=== PATIENT | female | born 1955 | race Caucasian/White ===

== ENCOUNTER 2017-03-25 14:56 | Day surgery (SDC) | payer SELFPAY ==
[~2017-03-25] VITALS: Ht 167.6 cm; Wt 63.0 kg
[2017-03-25] MEDS ORDERED: MORPHINE SULFATE 4 MG/ML, 1ML ONE (15:27)
[2017-03-25] MEDS ORDERED: ONDANSETRON 2MG/ML, 2ML ONE ×2 (15:28→18:12)
[2017-03-25] MEDS ORDERED: SODIUM CHLORIDE FLUSH 10ML SYR IVF ONE (15:30)
[2017-03-25] MEDS ORDERED: MORPHINE SULFATE 4 MG/ML, 1ML IVPush PRN (15:30)
[2017-03-25] MEDS ORDERED: ONDANSETRON 2MG/ML, 2ML IVPush ONE (15:30)
[2017-03-25] MEDS ORDERED: SODIUM CHLORIDE 0.9% 1,000ML IVBOLUS ONE (15:30)
[2017-03-25 15:39] LABS: BLOOD UREA NITROGEN 12 mg/dL (7-18)
[2017-03-25 16:07] VITALS: BP 110/62
[2017-03-25] MEDS ORDERED: FENTANYL PF 250 MCG/5ML ONE (17:40)
[2017-03-25] MEDS ORDERED: MIDAZOLAM 1 MG/ML, 2ML ONE (17:40)
[2017-03-25] MEDS ORDERED: BUPIVACAINE/PF-EPI 0.5% 1:200K ONE (17:53)
[2017-03-25] MEDS ORDERED: SUCCINYLCHOLINE 20 MG/ML, 10ML ONE (18:12)
[2017-03-25] MEDS ORDERED: CEFAZOLIN 1,000 MG ONE (18:12)
[2017-03-25] MEDS ORDERED: DEXAMETHASONE 4 MG/ML, 1ML ONE (18:12)
[2017-03-25] MEDS ORDERED: KETOROLAC 30 MG/1 ML ONE (18:12)
[2017-03-25] MEDS ORDERED: PROPOFOL 10 MG/ML, 20ML ONE (18:12)
[2017-03-25] MEDS ORDERED: MIDAZOLAM 1 MG/ML, 2ML IV PRN (18:30)
[2017-03-25] MEDS ORDERED: ACETAMINOPHEN 325 MG TABLET PO PRN (18:30)
[2017-03-25] MEDS ORDERED: MEPERIDINE/PF 25MG/0.5ML IVPush PRN (18:30)
[2017-03-25] MEDS ORDERED: FENTANYL PF 100 MCG/2ML IV PRN (18:30)
[2017-03-25] MEDS ORDERED: HYDROmorphone 1 MG/ML, 1ML IV PRN (18:30)
[2017-03-25] MEDS ORDERED: ALBUTEROL/IPRATROPIUM 2.5MG/0.5MG, 3 ML NPPB PRN (18:30)
[2017-03-25] MEDS ORDERED: LABETALOL 5MG/ML, 20ML IV PRN (18:30)
[2017-03-25] MEDS ORDERED: ONDANSETRON 2MG/ML, 2ML IVPush PRN ×2 (18:30→19:00)
[2017-03-25] MEDS ORDERED: PROMETHAZINE 25 MG/ML, 1ML IV PRN (18:30)
[2017-03-25] MEDS ORDERED: OXYcodone 5 MG/5 ML ORAL.SOL UDC PO PRN (18:30)
[2017-03-25] MEDS ORDERED: LACTATED RINGERS 1,000 ML IV SCH (18:57)
[2017-03-25] MEDS ORDERED: HYDROcodone/APAP 5/325 TABLET PO PRN (19:00)
[2017-03-25] MEDS ORDERED: ACETAMINOPHEN 650 MG/20.3 ML UDC ONE (19:15)
[2017-03-25] MEDS ORDERED: MEPERIDINE/PF 25MG/0.5ML ONE (19:15)
[2017-03-25] MEDS ORDERED: ACETAMINOPHEN 325 MG/10.15 ML UDC ONE (19:15)
[2017-03-25] MEDS ORDERED: HYDR-883 PO (20:51)
== END 2017-03-25 21:20 | disposition home or self-care (01) ==
LOC: ED 16:47 → EDIP 17:54 → UNDOADMIN 17:54 → OR 18:57 → EDIP 19:58 → 4NOR 19:58 → UNDODISIN 21:20 → OR 21:20
PROVIDERS: ATTEND Thoracic Surgery (Cardiothoracic Vascular Surgery)
DX: K40.90 Unilateral inguinal hernia, without obstruction or gangrene, not specified as recurrent (principal); Z87.891 Personal history of nicotine dependence; I25.10 Atherosclerotic heart disease of native coronary artery without angina pectoris
CPT/HCPCS: 36415; 49505; 51701; 71010; 76857; 80048; 81003; 82040; 85025; 93005; 96361; 96374; 96375; 99285; C1781; J0330; J0690; J1100; J1885; J2175; J2250; J2405; J2704; J3010; J7030; P9612

== ENCOUNTER 2021-04-16 12:46 | Emergency (ER) | payer MEDICARE, BC ==
[~2021-04-16] VITALS: Ht 167.6 cm; Wt 73.0 kg
[~2021-04-16 12:46] MED LIST: HYDR-1067 PO
[2021-04-16] MEDS ORDERED: METO25TA35 PO (12:53)
[2021-04-16] MEDS ORDERED: ONDANSETRON 2MG/ML, 2ML ONE (13:13)
[2021-04-16] MEDS ORDERED: SODIUM CHLORIDE FLUSH 10ML SYR IVF ONE (13:30)
[2021-04-16] MEDS ORDERED: ONDANSETRON 2MG/ML, 2ML IVPush ONE (13:30)
[2021-04-16] MEDS ORDERED: SODIUM CHLORIDE 0.9% 1,000ML IVBOLUS ONE (13:30)
--- NOTE | 2021-04-16 13:33 | NUR ---
MEDS PER MAR. NOT DIZZY NOW BUT A LITTLE ON STANDING, BP NOT ORTHOSTATIC, ALSO FELT NAUSEA ON STANDING. DAUGHYER AT BEDSIDE.
[2021-04-16 13:34] LABS: BASOPHILS % (AUTO) 1 % (0-1); EOSINOPHILS % (AUTO) 1 % (1-7); LYMPHOCYTES % (AUTO) 21 % (22-44); MEAN CORPUSCULAR HEMOGLOBIN 30.5 pg (27.0-34.8); MEAN CORPUSCULAR HGB CONC 33.8 g/dL (32.4-35.8); MEAN PLATELET VOLUME 9.3 fL (7.4-10.4); MONOCYTES % (AUTO) 5 % (2-9); NEUTROPHILS % (AUTO) 73 % (42-75); PLATELET COUNT 191 x10^3/uL (130-400); RED BLOOD COUNT 4.44 x10^6/uL (3.82-5.3); RED CELL DISTRIBUTION WIDTH 14.6 % (9.6-15.2)
[2021-04-16 13:50] LABS: ALANINE AMINOTRANSFERASE 66 U/L (12-78); ALBUMIN 3.2 g/dL (3.4-5.0); ANION GAP 4 mmol/L (5-15); CALCIUM 8.5 mg/dL (8.5-10.1); CHLORIDE 112 mmol/L (98-107); CREATININE 0.84 mg/dL (0.55-1.02)
[2021-04-16 13:55] LABS: ALKALINE PHOSPHATASE 96 U/L (45-117); BILIRUBIN,TOTAL 0.5 mg/dL (0.2-1.0); TOTAL PROTEIN 6.6 g/dL (6.4-8.2); TROPONIN I < 0.015 ng/mL (0.000-0.045)
--- NOTE | 2021-04-16 14:29 | NUR ---
BREAK RN: PT VSS, DENIES PAIN. ALL TEST RESULTED AND IVF INFUSED. CHART UP FOR RECHECK. PT AWARE. CALL LIGHT W/I REACH
[2021-04-16 15:37] VITALS: BP 110/67
--- NOTE | 2021-04-16 15:38 | NUR ---
WALKED DOWN HALLWAY, PT DID FINE. NOTIFIED PT TBDC.
== END 2021-04-16 15:56 | disposition home or self-care (01) ==
LOC: ED 13:16
DX: R55 Syncope and collapse (principal); R94.31 Abnormal electrocardiogram [ECG] [EKG]; R07.89 Other chest pain
CPT/HCPCS: 36415; 71045; 80053; 84484; 85025; 93005; 96361; 96374; 99285; J2405; J7030